=== PATIENT | male | born 1945 | race Caucasian/White ===

== ENCOUNTER 2019-02-18 11:23 | Emergency (ER) | payer OTHER ==
--- NOTE | 2019-02-18 12:18 | RAD ---
XR Wrist 3 Rt View STANDARD HISTORY: Trauma, fall, left wrist pain FINDINGS: There is a mildly angulated fracture involving the distal radial metaphysis.
[2019-02-18] MEDS ORDERED: Morphine 4 MG/ML VIAL ONE (12:30)
[2019-02-18] MEDS ORDERED: Ketamine 50 MG/ML (10ML VIAL) ONE (12:41)
--- NOTE | 2019-02-18 15:22 | RAD ---
RIGHT WRIST 2 VIEWS: HISTORY: Post reduction distal radial fracture. FINDINGS/IMPRESSION: Fracture of the distal radius with mild angulation shows no significant interval change in alignment and positioning since earlier exam of 11:56 a.m. from the same date. [facility] POS: [facility]
== END 2019-02-18 14:10 | disposition home or self-care (01) ==
LOC: ERS 11:23
DX: S52.501A Unspecified fracture of the lower end of right radius, initial encounter for closed fracture (principal); E78.00 Pure hypercholesterolemia, unspecified; E78.5 Hyperlipidemia, unspecified; I10 Essential (primary) hypertension; F43.10 Post-traumatic stress disorder, unspecified; Z79.82 Long term (current) use of aspirin; Z79.899 Other long term (current) drug therapy; W11.XXXA Fall on and from ladder, initial encounter
CPT/HCPCS: 25505; 96374; J2270

== ENCOUNTER 2022-09-09 23:04 | Inpatient (IN) | payer OTHER ==
[2022-09-10 00:11] LABS: #Eosinphils 0.3 thou/uL (0.0-0.7); #Lymphocytes 0.9 thou/uL (1.20-3.40); #Monocytes 0.3 thou/uL (0.11-0.59); #Neutrophils 7.9 thou/uL (1.40-6.50); %Basophils 0.2 % (0.0-1.0); %Eosinophils 2.8 % (0.0-10.0); %Lymphocytes 9.2 % (21.0-51.0); %Monocytes 3.1 % (0.0-10.0); %Neutrophils 84.7 % (42.0-75.0); Hemoglobin 14.7 g/dL (14.0-18.0); Mean Corpuscular HGB CONC 33.9 g/dL (32.0-36.0); Mean Corpuscular Hemoglobin 29.7 pg (27.0-31.0); Mean Corpuscular Volume 87.6 fl (78.0-98.0); Mean Platelet Volume 9.2 fL (7.4-10.4); Platelet Count 214 10x3/uL (130-400); RBC Distribution Width 13.1 % (11.5-14.5); Red Blood Cell (RBC) Count 4.94 mill/uL (4.70-6.10); White Blood Cell (WBC) Count 9.3 10x3/uL (4.8-10.8)
[2022-09-10 00:15] LABS: ALT (SGPT) 25 U/L (8-55); AST (SGOT) 28 U/L (5-34); Albumin 3.9 g/dL (3.4-4.8); Alkaline Phosphatase 108 U/L (40-110); Anion Gap 12 mmol/L (10-20); BUN (Urea Nitrogen) 17 mg/dL (8.4-25.7); Bilirubin, Total 1.4 mg/dL (0.2-1.2); Calc. Creatinine Clearance 0 mL/min (70-130); Calcium 8.9 mg/dL (7.8-10.44); Carbon Dioxide 30 mmol/L (23-31); Chloride 96 mmol/L (98-107); Estimated GFR 79; Globulin 3.6 g/dL (2.4-3.5); Glucose 106 mg/dL (83-110); Potassium 4.4 mmol/L (3.5-5.1); Protein, Total 7.5 g/dL (5.8-8.1); Sodium 134 mmol/L (136-145)
[2022-09-10] MEDS ORDERED: cefTRIAXone\\ROCEPHIN 1 GM VIAL ONE ×2 (00:28→10:24)
[2022-09-10] MEDS ORDERED: Azithromycin 500 MG VIAL ONE (00:28)
[2022-09-10 00:41] LABS: CKMB 3.2 ng/mL (0-6.6)
[2022-09-10] MEDS ORDERED: Furosemide 40 MG/4 ML VIAL ONE (00:49)
[2022-09-10] MEDS ORDERED: Morphine 4 MG/ML VIAL ONE (01:45)
[2022-09-10] MEDS ORDERED: Acetaminophen 325 MG TAB PO PRN (02:20)
[2022-09-10] MEDS ORDERED: Senokot S 8.6-50 MG TAB PO PRN (02:20)
[2022-09-10] MEDS ORDERED: Ondansetron ODT 4 MG TAB PO PRN (02:20)
[2022-09-10 03:11] LABS: Magnesium 2.3 mg/dL (1.6-2.6)
[2022-09-10 04:18] LABS: Troponin I 0.095 ng/mL (< 0.028)
[2022-09-10] MEDS ORDERED: Furosemide 20 MG/2 ML VIAL ONE (06:47)
[2022-09-10] MEDS: Furosemide 20 MG/2 ML VIAL SLOW IVP SCH ×2 (06:50→14:49)
[2022-09-10 06:51] LABS: Troponin I 0.118 ng/mL (< 0.028)
[2022-09-10] MEDS ORDERED: Metoprolol Tartrate 5 MG/5 ML VIAL IVP SCH (07:00)
[2022-09-10] MEDS ORDERED: Metoprolol Tartrate 5 MG/5 ML VIAL ONE (07:14)
[2022-09-10] MEDS ORDERED: HYDROcodone/Acetaminophen 10/325 mg Tablet ONE (07:23)
[2022-09-10] MEDS ORDERED: Aspirin Chewable 81 MG TAB ONE (10:09)
[2022-09-10] MEDS ORDERED: methylPREDNISolone Sod Succ 40 MG VIAL ONE (10:09)
[2022-09-10] MEDS: Apixaban 5 MG TAB PO SCH ×2 (10:20→20:40)
[2022-09-10] MEDS: Aspirin Chewable 81 MG TAB PO SCH (10:20)
[2022-09-10] MEDS: Finasteride 5 MG TAB PO SCH (10:21)
[2022-09-10] MEDS: Doxycycline 100 MG CAP PO SCH ×2 (10:21→20:40)
[2022-09-10] MEDS: Chlorthalidone 25 MG TAB PO SCH (10:21)
[2022-09-10] MEDS: Sotalol HCl 80 MG TAB PO SCH ×2 (10:22→21:18)
[2022-09-10] MEDS: methylPREDNISolone Sod Succ 40 MG VIAL IVP SCH ×2 (10:22→20:42)
[2022-09-10] MEDS: Lisinopril 2.5 MG TAB PO SCH (10:22)
[2022-09-10] MEDS: cefTRIAXone\\ROCEPHIN 1 GM in Sodium Chloride 0.9% 100 ML IVPB SCH (10:27)
[2022-09-10] MEDS: Pregabalin 75 MG CAP PO SCH ×2 (10:50→20:38)
[2022-09-10] MEDS: Ipratropium/Albuterol 3 ML NEB NEB SCH ×3 (11:16→18:31)
[2022-09-10] MEDS ORDERED: Mometasone 200 MCG/Formoterol 5 MCG 120 PUFF INHALER INH SCH (13:00)
[2022-09-10 14:01] VITALS: BMI 19.6
[2022-09-10] MEDS: Mometasone 200 MCG/Formoterol 5 MCG 120 PUFF INHALER INH SCH (18:32)
[2022-09-10] MEDS: HYDROcodone/Acetaminophen 10/325 mg Tablet PO PRN (19:38)
[2022-09-10] MEDS: Atorvastatin Calcium 10 MG TAB PO SCH (20:40)
[2022-09-11] MEDS: Ipratropium/Albuterol 3 ML NEB NEB SCH ×4 (00:56→19:15)
[2022-09-11 05:18] LABS: Anion Gap 13 mmol/L (10-20); BUN (Urea Nitrogen) 28 mg/dL (8.4-25.7); Calc. Creatinine Clearance 39 mL/min (70-130); Calcium 8.5 mg/dL (7.8-10.44); Carbon Dioxide 28 mmol/L (23-31); Chloride 96 mmol/L (98-107); Estimated GFR 58; Glucose 128 mg/dL (83-110); Potassium 3.6 mmol/L (3.5-5.1); Sodium 133 mmol/L (136-145)
[2022-09-11 05:19] LABS: #Lymphocytes 0.6 thou/uL (1.20-3.40); #Monocytes 0.2 thou/uL (0.11-0.59); #Neutrophils 8.5 thou/uL (1.40-6.50); %Lymphocytes 6.7 % (21.0-51.0); %Monocytes 2.5 % (0.0-10.0); %Neutrophils 90.8 % (42.0-75.0); Hemoglobin 12.4 g/dL (14.0-18.0); Mean Corpuscular HGB CONC 32.7 g/dL (32.0-36.0); Mean Corpuscular Hemoglobin 29.1 pg (27.0-31.0); Mean Corpuscular Volume 88.9 fl (78.0-98.0); Mean Platelet Volume 9.4 fL (7.4-10.4); Platelet Count 209 10x3/uL (130-400); RBC Distribution Width 13.3 % (11.5-14.5); Red Blood Cell (RBC) Count 4.24 mill/uL (4.70-6.10); White Blood Cell (WBC) Count 9.4 10x3/uL (4.8-10.8)
[2022-09-11] MEDS: Furosemide 20 MG/2 ML VIAL SLOW IVP SCH ×2 (05:46→15:34)
[2022-09-11] MEDS: Mometasone 200 MCG/Formoterol 5 MCG 120 PUFF INHALER INH SCH ×2 (06:39→19:17)
[2022-09-11] MEDS: Doxycycline 100 MG CAP PO SCH ×2 (08:13→20:26)
[2022-09-11] MEDS: methylPREDNISolone Sod Succ 40 MG VIAL IVP SCH (08:13)
[2022-09-11] MEDS: Pregabalin 75 MG CAP PO SCH ×2 (08:13→20:27)
[2022-09-11] MEDS: Lisinopril 2.5 MG TAB PO SCH (08:14)
[2022-09-11] MEDS: Aspirin Chewable 81 MG TAB PO SCH (08:15)
[2022-09-11] MEDS: Apixaban 5 MG TAB PO SCH ×2 (08:15→20:26)
[2022-09-11] MEDS: Sotalol HCl 80 MG TAB PO SCH ×2 (08:16→20:26)
[2022-09-11] MEDS: cefTRIAXone\\ROCEPHIN 1 GM in Sodium Chloride 0.9% 100 ML IVPB SCH (08:16)
[2022-09-11] MEDS: Finasteride 5 MG TAB PO SCH (08:16)
[2022-09-11] MEDS: Chlorthalidone 25 MG TAB PO SCH (08:21)
[2022-09-11] MEDS ORDERED: Mag-Al 1200 mg/1200 mg/30 ML UDCUP PO PRN (11:05)
[2022-09-11] MEDS: HYDROcodone/Acetaminophen 10/325 mg Tablet PO PRN ×2 (11:31→20:27)
[2022-09-11] MEDS ORDERED: Digoxin 0.5 MG/2 ML AMP SLOW IVP SCH (18:00)
[2022-09-11] MEDS ORDERED: Sodium Chloride 0.9% 500 ML IVPB SCH (18:00)
[2022-09-11] MEDS: Atorvastatin Calcium 10 MG TAB PO SCH (20:26)
[2022-09-12] MEDS: Ipratropium/Albuterol 3 ML NEB NEB SCH ×4 (00:42→18:17)
[2022-09-12] MEDS: HYDROcodone/Acetaminophen 10/325 mg Tablet PO PRN ×2 (03:24→18:09)
[2022-09-12 04:23] LABS: #Lymphocytes 1.1 thou/uL (1.20-3.40); #Monocytes 0.7 thou/uL (0.11-0.59); #Neutrophils 10.5 thou/uL (1.40-6.50); %Eosinophils 0.1 % (0.0-10.0); %Lymphocytes 9.2 % (21.0-51.0); %Monocytes 5.9 % (0.0-10.0); %Neutrophils 84.9 % (42.0-75.0); Hemoglobin 13.2 g/dL (14.0-18.0); Mean Corpuscular HGB CONC 32.8 g/dL (32.0-36.0); Mean Corpuscular Hemoglobin 29.2 pg (27.0-31.0); Mean Corpuscular Volume 88.9 fl (78.0-98.0); Mean Platelet Volume 9.4 fL (7.4-10.4); Platelet Count 214 10x3/uL (130-400); RBC Distribution Width 13.4 % (11.5-14.5); Red Blood Cell (RBC) Count 4.53 mill/uL (4.70-6.10); White Blood Cell (WBC) Count 12.4 10x3/uL (4.8-10.8)
[2022-09-12 04:39] LABS: Anion Gap 11 mmol/L (10-20); BUN (Urea Nitrogen) 29 mg/dL (8.4-25.7); Calc. Creatinine Clearance 47 mL/min (70-130); Calcium 8.7 mg/dL (7.8-10.44); Carbon Dioxide 30 mmol/L (23-31); Chloride 93 mmol/L (98-107); Estimated GFR 73; Glucose 104 mg/dL (83-110); Potassium 3.6 mmol/L (3.5-5.1); Sodium 130 mmol/L (136-145)
[2022-09-12] MEDS: Furosemide 20 MG/2 ML VIAL SLOW IVP SCH ×3 (06:19→14:16)
[2022-09-12] MEDS: Mometasone 200 MCG/Formoterol 5 MCG 120 PUFF INHALER INH SCH ×2 (07:16→18:17)
[2022-09-12] MEDS: cefTRIAXone\\ROCEPHIN 1 GM in Sodium Chloride 0.9% 100 ML IVPB SCH (08:27)
[2022-09-12] MEDS: methylPREDNISolone Sod Succ 40 MG VIAL IVP SCH (08:29)
[2022-09-12] MEDS: Pregabalin 75 MG CAP PO SCH ×2 (08:42→20:35)
[2022-09-12] MEDS: Doxycycline 100 MG CAP PO SCH ×2 (08:43→20:35)
[2022-09-12] MEDS: Finasteride 5 MG TAB PO SCH (08:43)
[2022-09-12] MEDS: Apixaban 5 MG TAB PO SCH ×2 (08:48→20:35)
[2022-09-12] MEDS: Lisinopril 2.5 MG TAB PO SCH (08:48)
[2022-09-12] MEDS: Aspirin Chewable 81 MG TAB PO SCH (08:48)
[2022-09-12] MEDS: Chlorthalidone 25 MG TAB PO SCH (08:49)
[2022-09-12] MEDS: Sotalol HCl 80 MG TAB PO SCH (10:57)
[2022-09-12] MEDS ORDERED: Metoprolol Tartrate 25 MG TAB PO SCH (11:45)
[2022-09-12] MEDS: Metoprolol Tartrate 25 MG TAB PO SCH (20:35)
[2022-09-12] MEDS: Atorvastatin Calcium 10 MG TAB PO SCH (20:35)
[2022-09-13] MEDS: Ipratropium/Albuterol 3 ML NEB NEB SCH ×2 (00:28→06:36)
[2022-09-13] MEDS: HYDROcodone/Acetaminophen 10/325 mg Tablet PO PRN (04:44)
[2022-09-13] MEDS: Furosemide 20 MG/2 ML VIAL SLOW IVP SCH (06:05)
[2022-09-13] MEDS: Mometasone 200 MCG/Formoterol 5 MCG 120 PUFF INHALER INH SCH (06:35)
[2022-09-13 08:38] VITALS: BP 117/68; TEMP 97.3
[2022-09-13] MEDS: Lisinopril 2.5 MG TAB PO SCH (09:15)
[2022-09-13] MEDS: Aspirin Chewable 81 MG TAB PO SCH (09:15)
[2022-09-13] MEDS: Doxycycline 100 MG CAP PO SCH (09:15)
[2022-09-13] MEDS: Finasteride 5 MG TAB PO SCH (09:15)
[2022-09-13] MEDS: cefTRIAXone\\ROCEPHIN 1 GM in Sodium Chloride 0.9% 100 ML IVPB SCH (09:15)
[2022-09-13] MEDS: Apixaban 5 MG TAB PO SCH (09:15)
[2022-09-13] MEDS: methylPREDNISolone Sod Succ 40 MG VIAL IVP SCH (09:16)
[2022-09-13] MEDS: Pregabalin 75 MG CAP PO SCH (09:16)
[2022-09-13] MEDS: Metoprolol Tartrate 25 MG TAB PO SCH (09:16)
== END 2022-09-13 11:20 | disposition home or self-care (01) | DRG 291 ==
LOC: ERS 23:04 → ERHOLD 09-10 01:12 → 2SW 09-10 13:42
PROVIDERS: ADMIT Student in an Organized Health Care Education/Training Program; ATTEND Internal Medicine
DX: I11.0 Hypertensive heart disease with heart failure (principal); I50.33 Acute on chronic diastolic (congestive) heart failure; J96.01 Acute respiratory failure with hypoxia; J44.1 Chronic obstructive pulmonary disease with (acute) exacerbation; E87.1 Hypo-osmolality and hyponatremia; I47.29 Other ventricular tachycardia; E78.00 Pure hypercholesterolemia, unspecified; F43.10 Post-traumatic stress disorder, unspecified; I48.0 Paroxysmal atrial fibrillation; I49.5 Sick sinus syndrome; E78.5 Hyperlipidemia, unspecified; Z90.49 Acquired absence of other specified parts of digestive tract; Z79.51 Long term (current) use of inhaled steroids; Z79.899 Other long term (current) drug therapy; Z87.891 Personal history of nicotine dependence
CPT/HCPCS: 36415; 71045; 74230; 80048; 80053; 82553; 83605; 83735; 83880; 84484; 85025; 87040; 87631; 93005; 93010; 93306; 93798; 94640; 94660; J0456; J0696; J1160; J1940; J2270; J2920; J3490; J7030; J7620; U0003; U0005